=== PATIENT | male | born 1955 | race Caucasian/White ===

== ENCOUNTER 2018-08-02 12:25 | Outpatient (CLI) | payer BC, MEDICARE ==
[~2018-08-02] VITALS: Ht 190.5 cm; Wt 118.2 kg
--- NOTE | ~2018-08-02 | HEMODYNAMI ---
PATIENT:DAVID HOGUE MEDICAL RECORD: [id number] : 53 LOCATION:[facility] ADMISSION DATE: 08/02/18 Generatedon:08/02/201814:45 Patient name: DAVID HOGUE Patient #: [id number] SSN: : 1 11/25/1954 Date of study: 08/02/2018 Page: Of Hemodynamic Procedure Report Patient Data Patient Demographics Procedure consent was obtained First Name: DAVID Gender: Male Last Name: LENNIE : 1955 Patient #: [id number] Age: 62 year(s) Race: Unknown Additional ID: [id number] Contact details Address: [address] [place] [address] State: [place] City: [place] Zip code: [address] Past Medical History Allergies: No known allergies Admission Admission Data Admission Date: 08/02/2018 Admission Time: 12:25 Admit Source: Other Lab Results Lab Result Date: 08/02/2018 Lab Result Time: 1:30 Biochemistry Name Units Result Min Max BUN mg/dl 19 --(----)*- 7 18 Creatinine mg/dl 1.3 --(---*)-- 0.6 1.3 Potassium mmol/l 2.8 *-(----)-- 3.5 5.1 CBC Name Units Result Min Max Hematocrit % 43 --(*---)-- 42 54 Hemoglobin g/dl 14.4 --(*---)-- 13.5 17.5 Procedure Procedure Types Cath Procedure Diagnostic Procedure LHC LH w/Coronaries Aortic Root Angiography Sedation Charges Moderate Sedation up to 15 minutes Procedure Description Procedure Date Procedure Date: 08/02/2018 Procedure Start Time: 14:20 Procedure End Time: 14:43 Procedure Staff Name Function Warner Hall MD Performing Physician Bernardo Alston RT Monitor Qi Walker RT Scrub Munir Maldonado RN Nurse Procedure Data Cath Procedure Fluoroscopy Diagnostic fluoroscopy Total fluoroscopy Time: 4.5 time: 4.5 min min Diagnostic fluoroscopy Total fluoroscopy dose: 660 dose: 660 mGy mGy Contrast Material Contrast Material Type Amount (ml) Isovue 300 94 Entry Location Entry Primary Successful Side Size Upsize Upsize Entry Closure Collier ccessful Closure Location (Fr) 1 (Fr) 2 (Fr) Remarks Device Remarks Radial Right 6 Fr Mechanical artery Short Compression Femoral Right 5 Fr Exoseal artery Estimated blood loss: 5 ml Diagnostic catheters Device Type Used For End Catheter Placement DIAGNOSTIC Beto 110cm Procedure 5Fr catheter ([id number]) MULTIPACK JL 4.0 5Fr Procedure catheter MULTIPACK 3DRC 5Fr Procedure catheter MULTIPACK Pigtail 5 Fr Procedure catheter Procedure Complications No complications Procedure Medications Medication Administration Route Dosage 0.9% NaCl I.V. 100 ml/hr Oxygen etCO2 Nasal cannula 2 l/min Heparin Flush Bag added to field 2 bags (1000units/500ml NS) Lidocaine 2% added to field 20 Radial Cocktail added to field 1 syringe (Verapomil 2mg/Nitro 400mcg/Heparin 1500units) Potassium 40 meq Versed I.V. 2 mg Fentanyl I.V. 100 mcg Versed I.V. 2 mg Fentanyl I.V. 100 mcg Versed I.V. 2 mg Radial Cocktail I.A. 1 syringe (Verapomil 2mg/Nitro 400mcg/Heparin 1500units) Hemodynamics Rest HGB: 14.4 (g/dl) Heart Rate: 52 (bpm) Pressure Samples Time Site Value (mmHg) Purpose Heart Use Rate(bpm) 14:34 LV 125/12,23 Snapshot 57 Gradients Valve Time Site Site Mean SEP/DFP Peak To Heart Use 1 2 (mmHg) (sec/min) Peak Rate (mmHg) (bpm) Aortic 14:35 LV AO 58 Snapshots Pre Cath Intra NCS Post Cath Vital Signs Time Heart Resp SPO2 etCO2 NIBP (mmHg) Rhythm Pain Sedation Rate (ipm) (%) (mmHg) Status Level (bpm) 13:53:08 50 16 97 40.6 154/88(110) NSR 0 (11) 10(A) , No pain 13:57:55 55 16 98 23.3 148/96(113) NSR 0 (11) 10(A) , No pain 14:02:39 53 17 96 38.4 152/93(116) NSR 0 (11) 10(A) , No pain 14:07:26 53 10 94 42.1 150/90(109) NSR 0 (11) 10(A) , No pain 14:12:11 56 13 97 40.6 147/92(112) NSR 0 (11) 10(A) , No pain 14:17:00 57 17 95 42.1 150/79(109) NSR 0 (11) 10(A) , No pain 14:21:46 54 17 96 48.2 141/84(101) NSR 0 (11) 10(A) , No pain 14:26:27 66 18 93 46.7 112/79(96) NSR 0 (11) 9(A) , No pain 14:31:48 61 12 94 50.4 125/64(110) NSR 0 (11) 9(A) , No pain 14:36:35 57 12 93 45.2 136/80(98) NSR 0 (11) 10(A) , No pain 14:41:18 53 10 95 48.9 134/78(100) NSR 0 (11) 10(A) , No pain Medications Time Medication Route Dose Verified Delivered Reason Notes Effectiveness by by 13:51:56 0.9% NaCl I.V. 100 Munir Munir Per ml/hr Lortherese Maldonado physician RN RN 13:52:05 Oxygen etCO2 2 l/min Munir Muinr Per Nasal Erica Maldonado physician cannula RN RN 13:52:18 Heparin Flush added 2 bags Munir Munir used for Bag to Lorigan Erica procedure (1000units/500ml [facility] RN RN NS) 13:52:32 Lidocaine 2% added 20ml Munir Munir for local to vial Lorigan Lorigan anesthetic RN RN 13:52:51 Radial Cocktail added 1 Munir Munir used for (Verapomil to syringe Lorigan Lorigan procedure 2mg/Nitro RN RN 400mcg/Heparin 1500units) 14:17:49 Potassium p.o. 40 meq Munir Munir for Lorigan Shanelligan hypokalemia RN RN 14:18:02 Versed I.V. 2 mg Munir Munir for sedation Erica Maldonado RN RN 14:18:11 Fentanyl I.V. 100 mcg Munir Munir for sedation Erica Maldonado RN RN 14:19:54 Versed I.V. 2 mg Munir Munir for sedation Erica Maldonado RN, RN 14:20:00 Fentanyl I.V. 100 mcg Munir Amaral for sedation Erica Maldonado RN, RN 14:21:54 Versed I.V. 2 mg Munir Amaral for sedation Erica Maldonado RN, RN 14:22:32 Radial Cocktail I.A. 1 Munir Warner for (Verapomil syringe Erica Hall MD vasodilation 2mg/Nitro RN 400mcg/Heparin 1500units) Procedure Log Time Note 13:27:32 Informed consent obtained and on chart 13:27:36 Admit Source: Other 13:27:51 Diagnostic Cath status Elective 13:27:53 Munir Maldonado RN sent for patient. Start room use. 13:27:54 Time tracking: Regular hours (M-F 7:00 - 5:00) 13:27:57 Plan of Care:Hemodynamics will remain stable., Cardiac rhythm will remain stable., Comfort level will be maintained., Respiratory function will remain adequate., Patient/ family verbilizes understanding of procedure., Procedure tolerated without complication., Recovers from procedure without complications.. 13:28:07 H&P Date Dictated: 07/07/2018 Within 30 days and on chart., H&P Addendum completed by physician on day of procedure. (MUST COMPLETE FOR ALL OUTPATIENTS). 13:41:57 Patient received from Pre/Post Procedure Room to CCL 1 Alert and oriented. Tansferred to table in Supine position. 13:41:59 Warm blankets applied, and keely hugger turned on for patient comfort. 13:41:59 Correct patient and procedure confirmed by team. 13:42:00 ECG and BP/O2 sat monitors applied to patient. 13:42:00 Full Disclosure recording started 13:51:20 Vital chart was started 13:51:56 0.9% NaCl 100 ml/hr I.V. was administered by Munir Maldonado RN; Per physician; 13:52:05 Oxygen 2 l/min etCO2 Nasal cannula was administered by Munir Maldonado RN; Per physician; 13:52:18 Heparin Flush Bag (1000units/500ml NS) 2 bags added to field was administered by Munir Maldonado RN; used for procedure; 13:52:32 Lidocaine 2% 20ml vial added to field was administered by Munir Maldonado RN; for local anesthetic; 13:52:51 Radial Cocktail (Verapomil 2mg/Nitro 400mcg/Heparin 1500units) 1 syringe added to field was administered by Munir Maldonado RN; used for procedure; 13:59:40 Baseline sample Acquired. 14:01:20 Rhythm: sinus rhythm 14:01:41 Pre-procedure instructions explained to patient. 14:01:42 Pre-op teaching completed and patient verbalized understanding. 14:01:43 Family in waiting room. 14:01:44 Patient NPO since Midnight. 14:01:51 Patient allergic to No known allergies 14:02:04 Is the patient allergic to Iodine/contrast media? No. 14:02:05 Is patient on blood thinner?No 14:02:07 Patient diabetic? No. 14:02:11 Previous problem with sedation/anesthesia? No ? 14:02:12 Snore? Yes 14:02:13 Sleep apnea? Yes 14:02:14 Deviated septum? No 14:02:16 Opens mouth fully? Yes 14:02:18 Sticks out tongue? Yes 14:02:21 Airway obstruction? No ? 14:02:28 Dentures? No ? 14:02:30 Pre procedure: right dorsailis pedis pulse 2+ Normal; easily identifiable; not easily obliterated 14:02:36 Modified Sergio's test Ulnar < 7 seconds 14:02:38 Patient pain scale 0/10 ?. 14:02:49 IV patent on arrival in left forearm with 0.9% NaCl at [facility]. 14:03:34 Lab Result : Potassium 2.8 mmol/l 14:03:34 Lab Result : BUN 19 mg/dl 14:03:34 Lab Result : Hemoglobin 14.4 g/dl 14:03:34 Lab Result : Creatinine 1.3 mg/dl 14:03:35 Lab Result : Hematocrit 43 % 14:03:37 Lab results completed and on chart. 14:03:40 Right Radial & Right Groin area was prepped with chlora-prep and draped in sterile fashion 14:03:41 Alarms reviewed by R. N. 14:03:43 Sharps counted by scrub and verified by R.N. 14:03:52 Use device set Radial Dx or PCI 14:03:54 ACIST Syringe (06907) opened to sterile field. 14:03:54 Medline Cath Pack ([id number]) opened to sterile field. 14:03:55 Bag Decanter (2001S) opened to sterile field. 14:03:56 ACIST Hand Control (30318) opened to sterile field. 14:03:57 ACIST Manifold (10419) opened to sterile field. 14:03:57 Tegaderm 4 x 4 (1626W) opened to sterile field. 14:03:58 MBrace Wrist Support ([id number]) opened to sterile field. 14:03:59 SHEATH 6Fr Prelude Radial ([id number]) opened to sterile field. 14:04:00 DIAGNOSTIC WIRE .035 260cm J wire (845147) opened to sterile field. 14:08:18 Zero performed for pressure channel P1 14:16:28 Physician arrived 14:16:29 --------ALL STOP TIME OUT------ 14:16:29 Final Timeout: patient, procedure, and site verified with staff and physician. All members of the team are in agreement. 14:16:31 Right Radial & Right Groin site verified by team. 14:16:33 Physical assessment completed. ASA score P 2 - A patient with mild systemic disease as per Warner Hall MD. 14:16:36 Sedation plan: IV Moderate Sedation Medication:Versed, Fentanyl 14:17:49 Potassium 40 meq p.o. was administered by Munir Maldonado RN; for hypokalemia; 14:18:02 Versed 2 mg I.V. was administered by Munir Maldonado RN; for sedation; 14:18:11 Fentanyl 100 mcg I.V. was administered by Munir Maldonado RN; for sedation; 14:19:54 Versed 2 mg I.V. was administered by Munir Maldonado RN; for sedation; 14:20:00 Fentanyl 100 mcg I.V. was administered by Munir Maldonado RN; for sedation; 14:20:27 Procedure started. 14:20:42 Local anesthetic to right radial artery with Lidocaine 2% by Warner Hall MD.INITIAL ACCESS ONLY 14:21:54 Versed 2 mg I.V. was administered by Munir Maldonado RN; for sedation; 14:22:32 Radial Cocktail (Verapomil 2mg/Nitro 400mcg/Heparin 1500units) 1 syringe I.A. was administered by Warner Hall MD; for vasodilation; 14:23:31 A 6 Fr Short sheath was inserted into the Right Radial artery 14:23:48 A DIAGNOSTIC Beto 110cm 5Fr catheter ([id number]) was advanced over the wire and used for Procedure. 14:25:27 SHEATH Prelude 5Fr 0.035 ([id number]) opened to sterile field. 14:26:50 Catheter removed. 14:27:22 unable to cannulate arteries from radial. Moving to femoral approach. 14:28:04 Local anesthetic to right femoral artery with Lidocaine 2% by Warner Hall MD.ADDITIONAL ACCESS 14:28:12 A 5 Fr sheath was inserted into the Right Femoral artery 14:28:50 Use device set Multipack Set 14:28:53 DIAGNOSTIC Multipack 5Fr catheter set ([id number]) opened to sterile field. 14:30:43 A MULTIPACK JL 4.0 5Fr catheter was advanced over the wire and used for Procedure. 14:30:45 LCA angiography performed. 14:31:50 Catheter exchanged over wire. 14:32:05 A MULTIPACK 3DRC 5Fr catheter was advanced over the wire and used for Procedure. 14:32:59 RCA angiography performed. 14:33:02 Catheter exchanged over wire. 14:34:13 A MULTIPACK Pigtail 5 Fr catheter was advanced over the wire and used for Procedure. 14:34:41 LV gram done using RUBIO 14:34:43 Injector settings: Ml/sec: 10, Volume: 20, 14:34:45 LV hemodynamics recorded. 14:34:52 EF : 50 % 14:35:19 Aortic Root visualized 14:35:45 Catheter removed. 14:35:55 EXOSEAL 5Fr (EX500) opened to sterile field. 14:36:06 Sheath removed intact; hemostasis achieved with Exoseal to the Right Femoral artery. 14:36:07 Procedure ended.(Physican Out) 14:37:24 Fluoroscopy time 04.50 minutes. 14:37:28 Flurop Dose total: 660 14:37:28 Fluoroscopy dose: 660 mGy 14:38:38 Contrast amount:Isovue 300 94ml. 14:38:40 Sharps counted by scrub and verified by R.N. 14:38:53 TR BAND Standard ([id number]) opened to sterile field. 14:39:38 Sheath removed intact; hemostasis achieved with Mechanical Compression to the Right Radial artery. 14:39:53 TR band inflated with 12cc of air. 14:39:55 Insertion/operative site no bleeding no hematoma. 14:39:57 Post-op/insertion site Right Femoral artery dressed using a 4 x 4 and Tegaderm. 14:40:01 Post right femoral artery:stable, soft, clean and dry 14:40:43 Post Procedure Pulses reassessed and unchanged 14:40:49 Post-procedure physical assessment completed. ASA score P 2 - A patient with mild systemic disease as per Wraner Hall MD. 14:40:51 Post procedure rhythm: unchanged. 14:40:54 Estimated blood loss: 5 ml 14:40:56 Post procedure instruction explained to patient.Patient verbalizes understanding. 14:40:56 Patient needs reinforcement of post procedure teaching. 14:41:17 Procedure type changed to Cath procedure, Diagnostic procedure, LHC, LHC w/Coronaries, Aortic Root Angiography, Sedation Charges, Moderate Sedation up to 15 minutes 14:43:28 Procedure and supply charges have been captured, reviewed, submitted and are correct. 14:43:30 Procedure Complication : No complications 14:43:33 Vital chart was stopped 14:43:33 See physician's report for complete and final results. 14:43:35 Report given to Pre/Post Procedure Room. 14:43:37 Patient transfered to Pre/Post Procedure Room with Stretcher. 14:43:39 Procedure ended. 14:43:39 Full Disclosure recording stopped 14:43:45 End room use (Document Last) Device Usage Item Name Manufacture Quantity Catalog Number Hospital Part Current M inimal Lot# / Charge Number Stock Stock Serial# Code ACIST Syringe Acist 1 36796 [id number] 458518 006056 2 0 (95495) [employer] Medline Cath Cardinal 1 [id number] 758907 27339 576529 5 Pack Health ([id number]) Bag Decanter Microtek 1 584885 82151 752469 5 () Medical Inc. ACIST Hand Acist 1 17572 467015 249664 680941 5 Control (21065) [employer] ACIST Manifold Acist 1 53166 081881 102898 331220 5 (16228) [employer] Tegaderm 4 x 4 3M 1 1626W 376064 343015 166723 5 (1626W) MBrace Wrist Advanced 1 140-0250-00 978716 65396 653494 5 Support Vascular ([id number]) Dynamics SHEATH 6Fr Merit 1 [id number] 711434 359192 111748 5 Prelude Radial Medical ([id number]) DIAGNOSTIC WIRE St Berto 1 259373 839589 248183 517101 3 0 .035 260cm J wire (049337) DIAGNOSTIC Terumo 1 40-9044 029486 442598 820961 5 Beto 110cm 5Fr catheter (343362) DIAGNOSTIC Cardinal 1 [id number] 224796 20737 252392 3 0 Multipack 5Fr Health catheter set ([id number]) MULTIPACK JL Cardinal 1 410306 5 4.0 5Fr Health catheter MULTIPACK 3DRC Cardinal 1 [id number] 5 5Fr catheter Health MULTIPACK Cardinal 1 256390 5 Pigtail 5 Fr Health catheter EXOSEAL 5Fr Cardinal 1 EX500 910014 955580 061983 1 0 (EX500) Health TR BAND Terumo 1 [id number] 125542 992137 121811 4 0 Standard ([id number]) SHEATH Prelude Merit 1 NTG-5Y-88-035 266688 678374 595102 5 5Fr 0.035 Medical ([id number]-[id number]) Signature Audit [place] Stage Time Signature Unsigned Intra-Procedure 08/02/2018 Bernardo Alston 2:44:58 PM RT(R) Signatures Monitor : Bernardo Alston RT Signature : Date : Time : [facility] [address] [place] [place] [address]
[2018-08-02] MEDS ORDERED: CYMBALTA60 MG PO (12:54)
[2018-08-02] MEDS ORDERED: NORVASC5 MG PO (12:54)
[2018-08-02] MEDS ORDERED: NORMODYNE / TR300 MG PO (12:55)
[2018-08-02] MEDS ORDERED: LEVOTHYROXINE100 MCG PO (12:55)
[2018-08-02] MEDS ORDERED: PRAVASTATIN SOD10 MG PO (12:55)
[2018-08-02] MEDS ORDERED: BAYER CHEWABLE81 MG PO (12:56)
[2018-08-02] MEDS ORDERED: BENICAR40 MG PO (12:56)
[2018-08-02] MEDS ORDERED: HCTZ25 MG PO (12:56)
[2018-08-02] MEDS ORDERED: MELATONIN10 M1 PO (12:56)
[2018-08-02] MEDS ORDERED: FISH OIL 1,0001 CA1 PO (12:57)
[2018-08-02 13:05] VITALS: BP 139/85; Ht 190.5 cm; Wt 118.2 kg
[2018-08-02 13:09] LABS: BASOPHILS 0.3 % (0-2); HEMOGLOBIN 14.4 g/dL (13.5-17.5); IMMATURE GRANULOCYTES 0.4 % (0-5); LYMPHOCYTES 29.9 % (15-50); MCH 29.5 pg (26.0-34.0); MCHC 33.5 g/dL (31.0-37.0); MCV 88.1 fL (80.0-100.0); MEAN PLATELET VOLUME 10.3 fL (7.4-10.4); MONOCYTES 10.2 % (2-11); NEUTROPHILS 56.2 % (40-80); PLATELET COUNT 254 10x3/uL (130-400); RBC 4.88 10x6/uL (4.20-6.10); RDW 14.1 % (11.5-14.5); WBC 7.2 10x3/uL (4.8-10.8)
[2018-08-02 13:56] LABS: ANION GAP 10.2 mmol/L (8-16); CALCIUM 7.6 mg/dL (8.5-10.1); CARBON DIOXIDE 27.6 mmol/L (21.0-32.0); CREATININE - SERUM 1.3 mg/dL (0.6-1.3)
[2018-08-02 13:59] LABS: POTASSIUM - SERUM 2.8 mmol/L (3.5-5.1)
== END 2018-08-02 17:05 | disposition home or self-care (01) ==
LOC: D.CATH 12:25
PROVIDERS: Internal Medicine Cardiovascular Disease
DX: I20.9 Angina pectoris, unspecified (principal); I35.1 Nonrheumatic aortic (valve) insufficiency; Z01.812 Encounter for preprocedural laboratory examination

== ENCOUNTER → 2020-05-05 09:18 | Outpatient (CLI) | payer MEDICARE, BC ==
[2018-08-02 13:05] VITALS: BMI 32.5
[~2020-05-05 09:18] MED LIST: BAYER CHEWABLE81 MG PO; BENICAR40 MG PO; CYMBALTA60 MG PO; FISH OIL 1,0001 CA1 PO; HCTZ25 MG PO; LEVOTHYROXINE100 MCG PO; MELATONIN10 M1 PO; NORMODYNE / TR300 MG PO; NORVASC5 MG PO; PRAVASTATIN SOD10 MG PO
== END | disposition home or self-care (01) ==
LOC: D.HCCECHO 05-01 13:00
PROVIDERS: ATTEND Internal Medicine Cardiovascular Disease
DX: I10 Essential (primary) hypertension (principal)

== ENCOUNTER → 2021-05-14 10:54 | Outpatient (CLI) | payer MEDICARE, BC ==
[2018-08-02 13:05] VITALS: BMI 32.5
== END | disposition home or self-care (01) ==
LOC: D.HCCECHO 10:54
PROVIDERS: ATTEND Internal Medicine Cardiovascular Disease
DX: I10 Essential (primary) hypertension (principal)